=== PATIENT | female | born 1975 | race Caucasian/White ===

== ENCOUNTER → 2017-08-26 | Outpatient (CLI) | payer OTHER ==
[~2017-08-26] MED LIST: Amox Tr-K Clv1 EAC2 PO; DIAZ2 PO; HYDR1TAB94 PO; IRON TABLETS; LEVSOD50 PO; ONDA4ODT SL; PROM25 PO; Percocet 5-3251 EACH PO; TRAM50 PO; TRAZ50 PO; Zoloft25 MG PO
[2017-08-26 10:31] LABS: Source, Urine Clean Catch
[2017-08-26 12:50] LABS: Bilirubin, Urine Neg (Neg); Blood, Urine Neg (Neg); Glucose Qualitative, Urine Neg (Neg); Ketones, Urine Neg (Neg); Leukocyte Esterase, Urine Neg (Neg); Nitrite, Urine Neg (Neg); Protein, Urine Neg (Neg); Specific Gravity, Urine 1.005 (1.003-1.022); Urobilinogen, Urine NORM (Normal); pH, Urine 6.5 (5.0-8.0)
[2017-08-26 12:58] LABS: Appearance, Urine Clear (Clear); Color, Urine Pale Yellow (P-Yellow)
[2017-08-27 10:56] LABS: HPV Genotype 16 Not Detected (NOTDET); HPV Genotype 18 Not Detected (NOTDET)
[2017-08-31 09:10] LABS: HPV High Risk Other Not Detected (NOTDET)
== END | disposition home or self-care (01) ==
LOC: LAB 10:18
PROVIDERS: Nurse Practitioner Obstetrics & Gynecology
DX: Z01.419 Encounter for gynecological examination (general) (routine) without abnormal findings (principal); R30.0 Dysuria
CPT/HCPCS: 81003; 87624; G0123

== ENCOUNTER → 2021-02-02 | Outpatient (CLI) | payer OTHER ==
[2021-02-03 10:13] LABS: Stool Occult Bld Immuno 1 Negative (NEGATIVE)
== END | disposition home or self-care (01) ==
LOC: LAB 16:39 → LAB SHORT 16:39 → LAB FUT 01-30 14:15
PROVIDERS: Family Medicine
DX: D50.9 Iron deficiency anemia, unspecified (principal)
CPT/HCPCS: G0328

== ENCOUNTER 2022-10-31 15:19 | Emergency (ER) | payer OTHER ==
[~2022-10-31] VITALS: Ht 165.1 cm; Wt 54.4 kg
[2022-10-31 15:29] VITALS: BP 139/88
[2022-10-31] MEDS ORDERED: Ativan0.5 MG PO (16:40)
[2022-10-31] MEDS ORDERED: ESCI20 (16:43)
[2022-10-31] MEDS ORDERED: ABILIFY MYCITE2 M2 PO (16:44)
== END 2022-10-31 16:50 | disposition home or self-care (01) ==
LOC: ER 15:19
DX: R45.1 Restlessness and agitation (principal); Z79.899 Other long term (current) drug therapy
CPT/HCPCS: 99284

== ENCOUNTER → 2023-08-02 | Outpatient (CLI) | payer OTHER ==
[~2023-08-02] MED LIST changes: +ABILIFY MYCITE2 M2 PO; +Ativan0.5 MG PO; +ESCI20
[2023-08-02 19:00] LABS: BASOPHILS ABSOLUTE AUTO 0.04 K/mm3 (0.00-0.23); BASOPHILS PERCENT AUTO 1 % (0-2); EOSINOPHILS PERCENT AUTO 1 % (0-6); Hematocrit 39.6 % (33.0-51.0); Hemoglobin 13.2 g/dL (11.5-16.0); IMMATURE GRAN ABSOLUTE AUTO 0.03 K/mm3 (0.00-0.10); IMMATURE GRAN PERCENT AUTO 0 % (0-1); LYMPHOCYTES ABSOLUTE AUTO 1.55 K/mm3 (0.84-5.20); LYMPHOCYTES PERCENT AUTO 20 % (21-46); MONOCYTES ABSOLUTE AUTO 0.45 K/mm3 (0.16-1.47); MONOCYTES PERCENT AUTO 6 % (4-13); Mean Corpuscular HGB 30.3 pg (26.0-34.0); Mean Corpuscular HGB Conc 33.3 g/dL (31.5-36.5); Mean Corpuscular Volume 91 fL (80-100); Mean Platelet Volume 11.2 fL (9.1-12.4); NEUTROPHILS ABSOLUTE AUTO 5.72 K/mm3 (1.96-9.15); NEUTROPHILS PERCENT AUTO 73 % (41-73); Platelet Count 177 K/mm3 (150-400); RDW Coefficient Variation 12.1 % (11.7-14.2); RDW Standard Deviation 40.1 fL (35.1-46.3); Red Blood Cell Count 4.36 M/mm3 (3.80-5.20); White Blood Cell Count 7.89 K/mm3 (4.00-11.30)
[2023-08-02 19:11] LABS: Albumin, Blood 3.8 g/dL (3.4-5.0); Albumin/Globulin Ratio 1.2 (0.8-1.8); Bilirubin, Total 0.4 mg/dL (0.1-1.0); Bun/Creatinine Ratio 14.1 (12.0-20.0); Calcium, Blood 9.1 mg/dL (8.5-10.1); Creatinine, Blood 0.71 mg/dL (0.40-1.00); Globulin, Blood 3.2 g/dL (2.2-4.0); Potassium, Blood 3.6 mmol/L (3.5-5.5)
== END | disposition home or self-care (01) ==
LOC: LAB SHORT 18:56 → LAB 18:56
PROVIDERS: Emergency Medicine
DX: R33.9 Retention of urine, unspecified (principal)
CPT/HCPCS: 80053; 85025

== ENCOUNTER → 2023-08-06 | Outpatient (CLI) | payer OTHER | LOC: LAB SHORT 17:44 → LAB 17:44 | DX: R33.9 Retention of urine, unspecified (principal) | CPT/HCPCS: 87086 ==

== ENCOUNTER → 2023-08-22 | Outpatient (CLI) | payer OTHER | LOC: LAB 12:27 → LAB SHORT 12:27 | DX: R33.9 Retention of urine, unspecified (principal) | CPT/HCPCS: 87077; 87086; 87186 ==

== ENCOUNTER → 2023-08-30 | Outpatient (CLI) | payer OTHER ==
[2023-08-30 15:58] LABS: Source, Urine Clean Catch
[2023-08-30 16:11] LABS: Glucose Qualitative, Urine Neg (Normal); Ketones, Urine 1+ (Neg); Leukocyte Esterase, Urine 1+ (Neg); Nitrite, Urine Pos (Neg); Protein, Urine 3+ (Neg); Specific Gravity, Urine 1.025 (1.003-1.022)
[2023-08-30 16:12] LABS: Appearance, Urine Cloudy (Clear); Bacteria Mod /hpf; Bilirubin, Urine Neg (Neg); Blood, Urine 2+ (Neg); Color, Urine Red (P-Yellow); Red Blood Cells, Urine TNTC /hpf (0-2); Squamous Epithelial Cells Few /hpf (Few); Urobilinogen, Urine NORM (Normal)
== END | disposition home or self-care (01) ==
LOC: LAB SHORT 15:56 → LAB 15:56
PROVIDERS: Physician Assistant Surgical
DX: R31.9 Hematuria, unspecified (principal)
CPT/HCPCS: 81001; 87086

== ENCOUNTER → 2023-10-24 | Outpatient (CLI) | payer OTHER ==
[~2023-10-24] MED LIST changes: +ESCITALOPRAM OX20 MG PO; +MIRT15 PO; +MYRBETRIQ25 MG PO
== END | disposition home or self-care (01) ==
LOC: LAB SHORT 14:11 → LAB 14:11
DX: L98.8 Other specified disorders of the skin and subcutaneous tissue (principal)
CPT/HCPCS: 88305

== ENCOUNTER 2023-11-03 19:05 | Emergency (ER) | payer OTHER ==
[~2023-11-03] VITALS: Ht 167.6 cm; Wt 54.4 kg
[~2023-11-03 19:05] MED LIST changes: -ESCITALOPRAM OX20 MG PO; -MIRT15 PO; -MYRBETRIQ25 MG PO
[2023-11-03 19:30] VITALS: BP 118/76
[2023-11-03] MEDS ORDERED: ESCITALOPRAM OX20 MG PO (19:31)
[2023-11-03] MEDS ORDERED: MIRT15 PO (19:31)
[2023-11-03] MEDS ORDERED: MYRBETRIQ25 MG PO (19:32)
[2023-11-03] MEDS ORDERED: LORazepam 2 MG/ML 1ML Injection IM ONE (19:55)
== END 2023-11-03 20:12 | disposition home or self-care (01) ==
LOC: ER 19:05
DX: G10 Huntington's disease (principal); Z79.899 Other long term (current) drug therapy
CPT/HCPCS: 96372; 99283-25; J2060

== ENCOUNTER 2024-06-09 19:53 | Emergency (ER) | payer OTHER ==
[~2024-06-09] VITALS: Ht 160 cm; Wt 45.4 kg
[~2024-06-09 19:53] MED LIST changes: +CIPR500 PO; +ESCITALOPRAM OX20 MG PO; +MIRT15 PO; +MYRBETRIQ25 MG PO
[2024-06-09 20:21] VITALS: BP 112/60
== END 2024-06-09 22:43 | disposition home or self-care (01) ==
LOC: ER 19:53
DX: M25.511 Pain in right shoulder (principal); Z79.899 Other long term (current) drug therapy
CPT/HCPCS: 73030; 99283-25